=== PATIENT | female | born 1975 ===

== ENCOUNTER 2020-09-08 12:52 | Emergency (ER) | payer MEDICAID ==
[2020-09-08] MEDS: Ketorolac 60 MG/2 ML SDV IM ONE (14:30)
[2020-09-08 14:36] VITALS: BP 140/97; PULSE 97
[2020-09-08] MEDS ORDERED: Ketorolac 60 MG/2 ML SDV ONE (15:04)
[2020-09-08] MEDS ORDERED: Ketorolac 30 MG/ML SDV IM ONE (15:11)
--- NOTE | 2020-09-08 15:26 | EDM.PDOC ---
ED HPI GENERAL MEDICAL PROBLEM - General Chief Complaint: General Stated Complaint: TOOTHACHE Time Seen by Provider: 09/08/20 15:00 Source of Information: Reports: Patient History Limitations: Reports: No Limitations - History of Present Illness INITIAL COMMENTS - FREE TEXT/NARRATIVE: Patient is a 44 y/o female who presents with lower jaw, frontal tooth pain and swelling. She tried to get into the dentist, but was recently exposed to someone testing positive to COVID a week ago. No COVID symptoms. She was unable to get a virtual visit with Dr. Glasgow, so she came to the ED for antibiotics. She has been taking advil without much relief in her pain. Patient has been getting her teeth removed and preparing for dentures. - Related Data Allergies Allergy/AdvReac Type Severity Reaction Status Date / Time erythromycin base AdvReac Hives Verified 06/03/16 14:21 Tetracyclines AdvReac Hives Verified 06/03/16 14:21 Home Meds: Home Meds ALPRAZolam [Xanax] 1 mg PO DAILY 04/01/15 [History] Lisinopril [Prinivil] 40 mg PO DAILY 04/01/15 [History] amLODIPine [Norvasc] 2.5 mg PO DAILY 01/08/16 [History] QUEtiapine [SEROquel XR] 150 mg PO BEDTIME 07/15/16 [History] Past Medical History HEENT History: Reports: Impaired Vision Other HEENT History: Vision today with irritation to the eye isn L20/30 R20/50 Cardiovascular History: Reports: Hypertension Other Cardiovascular History: Needs stress test, palpatations john irregular HR, HR reg today @88 Respiratory History: Reports: Asthma Other Respiratory History: smokes Other Genitourinary History: has freq and difficulty starting flow and residual urine present after voiding Other [employer] History: uterine cancer Neurological History: Reports: Brain Injury Other Neuro History: Short term memory loss Psychiatric History: Reports: Anxiety, Depression, PTSD Oncologic (Cancer) History: Reports: Uterine - Past Surgical History GI Surgical History: Reports: Bariatric Procedure Female Surgical History: Reports: Hysterectomy Social & Family History - Tobacco Use Month/Year Tobacco Last Used: trying to quit - Caffeine Use Caffeine Use: Reports: Coffee - Recreational Drug Use Recreational Drug Use: No ED ROS GENERAL - Review of Systems Review Of Systems: See Below Constitutional: Reports: No Symptoms HEENT: Reports: Dental Pain Respiratory: Reports: No Symptoms Cardiovascular: Reports: No Symptoms Skin: Reports: No Symptoms Neurological: Reports: No Symptoms Psychiatric: Reports: No Symptoms ED EXAM, GENERAL - Physical Exam Exam: See Below Free Text/Narrative:: Multiple dental caries and broken teeth to the gumline diffusely in the frontal, lower jaw. no fluctuance, no induration, no erythema, no purulent drainage, and no facial swelling. airway is patent. no drooling and patient handling secretions. Course - Vital Signs Text/Narrative:: Patient given 60 mg IM toradol and scripts for Augmentin and Ultram. Follow up with dental gurmeet. Last Recorded V/S: Last Vital Signs Temp 37.0 C 09/08/20 14:32 Pulse 97 09/08/20 14:32 Resp 16 09/08/20 14:32 BP 140/97 H 09/08/20 14:32 Pulse Ox - Orders/Labs/Meds Labs: Laboratory Tests 09/08/20 Range/Units 13:20 SARS-CoV-2 RNA (GIOVANI) Negative (NEGATIVE) Meds: Medications Discontinued Medications Generic Name Dose Route Start Last Admin Trade Name Anna PRN Reason Stop Dose Admin Ketorolac Tromethamine Confirm 09/08/20 15:04 Toradol Administered 09/08/20 15:05 Dose 60 mg .ROUTE .STK-MED ONE Ketorolac Tromethamine 30 mg 09/08/20 15:11 Toradol IM 09/08/20 15:12 ONETIME ONE Ketorolac Tromethamine 60 mg 09/08/20 15:11 Toradol IM 09/08/20 15:12 ONETIME ONE Departure - Departure Time of Disposition: 15:15 Disposition: Home, Self-Care 01 Condition: Good Clinical Impression: Pain, dental - Discharge Information *PRESCRIPTION DRUG MONITORING PROGRAM REVIEWED*: No *COPY OF PRESCRIPTION DRUG MONITORING REPORT IN PATIENT SHANTANU: No Referrals: PCP,None [Primary Care Provider] - Forms: ED Department Discharge Care Plan Goals: Get into your dentist as soon as possible. Return if needed. Sepsis Event Note (ED) - Evaluation Sepsis Screening Result: No Definite Risk - Focused Exam Vital Signs: Vital Signs Temp Pulse Resp BP 09/08/20 14:32 37.0 C 97 16 140/97 H
== END 2020-09-08 15:05 | disposition home or self-care (01) ==
LOC: LB.ED 12:52
DX: K02.9 Dental caries, unspecified (principal); I10 Essential (primary) hypertension; J45.909 Unspecified asthma, uncomplicated; F41.9 Anxiety disorder, unspecified; F32.9 Major depressive disorder, single episode, unspecified; Z20.828 Contact with and (suspected) exposure to other viral communicable diseases; Z88.1 Allergy status to other antibiotic agents; Z79.899 Other long term (current) drug therapy
CPT/HCPCS: 96372; 99283; J1885; U0002

== ENCOUNTER 2022-02-16 17:09 | Emergency (ER) | payer MEDICAID ==
[2022-02-16] MEDS: Albuterol 0.083% 2.5 MG/3 ML Neb Soln NEB ONE (17:20)
[2022-02-16] MEDS: LORazepam 2 MG/ML SDV IM ONE (17:38)
[2022-02-16 18:53] VITALS: BP 151/83; PULSE 99
== END 2022-02-16 19:17 ==
LOC: LB.ED 17:09
DX: K22.2 Esophageal obstruction (principal); I10 Essential (primary) hypertension; Z88.1 Allergy status to other antibiotic agents; Z79.899 Other long term (current) drug therapy
CPT/HCPCS: 70490; 71250; 96372; 99284; 99285-25; A0425; A0429; J2060

== ENCOUNTER 2022-04-16 14:38 | Emergency (ER) | payer MEDICAID ==
[2022-04-16] MEDS ORDERED: Aspirin 81 MG Tab.Chew PO ONE (14:57)
[2022-04-16 15:21] VITALS: BP 127/88; PULSE 83
[2022-04-16 15:43] LABS: ESTIMATED GFR 111 mL/min (>60)
== END 2022-04-16 16:21 | disposition home or self-care (01) ==
LOC: LB.ED 14:38
DX: R07.2 Precordial pain (principal); I25.10 Atherosclerotic heart disease of native coronary artery without angina pectoris; I10 Essential (primary) hypertension; Z88.1 Allergy status to other antibiotic agents; Z79.899 Other long term (current) drug therapy
CPT/HCPCS: 36415; 71045; 80053; 84484; 85025; 93005; 99285; A9270; 93010; 99282